=== PATIENT | female | born 1990 ===

== ENCOUNTER 2022-03-29 16:34 | Emergency (ER) | payer SELFPAY ==
[~2022-03-29] VITALS: Ht 167.6 cm; Wt 81.7 kg
[2022-03-29 17:30] LABS: Source, Urine Clean Catch
[2022-03-29 17:42] LABS: Appearance, Urine Hazy (Clear); Bilirubin, Urine Neg (Neg); Blood, Urine 4+ (Neg); Color, Urine Yellow (P-Yellow); Glucose Qualitative, Urine Neg (Neg); Ketones, Urine 1+ (Neg); Leukocyte Esterase, Urine 2+ (Neg); Nitrite, Urine Neg (Neg); Protein, Urine 1+ (Neg); Specific Gravity, Urine 1.025 (1.003-1.022); Urobilinogen, Urine NORM (Normal)
[2022-03-29 17:53] LABS: Bacteria Mod /hpf; Hyaline Casts 0-2 /lpf (0-2); Mucus Light (0-Heavy); Squamous Epithelial Cells Mod /hpf (Few)
[2022-03-29] MEDS ORDERED: Diflucan150 MG PO (18:47)
== END 2022-03-29 18:56 | disposition home or self-care (01) ==
LOC: ER 16:34
PROVIDERS: Physician Assistant
DX: B37.3 Candidiasis of vulva and vagina (principal)
CPT/HCPCS: 81001; 81025; 99283; A9270